=== PATIENT | female | born 1950 | race Caucasian/White ===

== ENCOUNTER → 2016-10-28 | Outpatient (CLI) | payer OTHER, MEDICARE, BC ==
[~2016-10-28] MED LIST: ASPIRIN PO; COREG PO; HUMALOG MIX 75/23 ML; LISINOPRIL PO; PLAVIX PO; ZESTORETIC 20/11 TAB PO; ZOCOR PO
[2016-10-28 12:29] LABS: HEMATOCRIT 34.8 % (35.0-45.0); HEMOGLOBIN 11.6 gm/dL (12.0-16.0); MEAN CELL VOLUME 88.2 FL (83-96); MEAN CORPUSCULAR HEMOGLOBIN 29.5 PG (28-34); MEAN CORPUSCULAR HGB CONC 33.4 g/dL (30-36); RED BLOOD COUNT 3.94 X10e (3.90-5.30); RED CELL DISTRIBUTION WIDTH 13.8 % (11.0-15.5); WHITE BLOOD COUNT 6.8 X10e3 (4.0-10.5)
[2016-10-28 13:09] LABS: CREATININE,RANDOM URINE 78 mg/dL; TOTAL PROTEIN,RANDOM URINE 41 mg/dl (<10)
[2016-10-28 13:10] LABS: BUN/CREATININE RATIO 21.92; CALCIUM SERUM 9.7 mg/dL (8.4-10.2); CREATININE SERUM 2.6 mg/dL (0.6-1.4); GLOM FILT RATE Estimated 18.3 mL/min (>60); PHOSPHOROUS 5.1 mg/dL (2.5-4.6); POTASSIUM 4.8 mmol/L (3.5-5.1)
[2016-10-30 20:54] LABS: CALCIUM (PTHINTACT) 9.7 mg/dL (8.6-10.4)
== END | disposition home or self-care (01) ==
LOC: CLAB 11:31
PROVIDERS: Internal Medicine Nephrology
DX: N17.9 Acute kidney failure, unspecified (principal); I12.9 Hypertensive chronic kidney disease with stage 1 through stage 4 chronic kidney disease, or unspecified chronic kidney disease; N18.3 Chronic kidney disease, stage 3 (moderate)
CPT/HCPCS: 36415; 80048; 82310; 82570; 83970; 84100; 84156; 85027

== ENCOUNTER → 2016-11-08 | Outpatient (CLI) | payer MEDICARE, BC ==
[2016-11-08 13:43] LABS: BILIRUBIN,TOTAL 0.6 mg/dL (0.2-2.0); BUN/CREATININE RATIO 18.46; CALCIUM SERUM 9.1 mg/dL (8.4-10.2); CREATININE SERUM 2.6 mg/dL (0.6-1.4); GLOM FILT RATE Estimated 18.3 mL/min (>60); POTASSIUM 4.6 mmol/L (3.5-5.1); PROTEIN TOTAL SERUM 6.7 g/dL (6.0-8.3)
[2016-11-09 17:18] LABS: MICROALB UR (PNL) 29.5 mg/dL (***)
== END | disposition home or self-care (01) ==
LOC: CLAB 12:03
PROVIDERS: Internal Medicine Endocrinology, Diabetes & Metabolism
DX: E10.21 Type 1 diabetes mellitus with diabetic nephropathy (principal); E10.649 Type 1 diabetes mellitus with hypoglycemia without coma; Z96.41 Presence of insulin pump (external) (internal)
CPT/HCPCS: 36415; 80053; 82043; 82570; 83036

== ENCOUNTER → 2017-02-21 | Outpatient (CLI) | payer MEDICARE, BC ==
[2017-02-21 15:23] LABS: CHOLESTEROL 236 mg/dL (0-200); HDL CHOLESTEROL 68 mg/dL (35-95); LDL/HDL RATIO 2 RATIO (0-4); TRIGLYCERIDES 59 mg/dL (10-160)
[2017-02-21 15:25] LABS: LDL CHOLESTEROL 156 mg/dL (-130)
== END | disposition home or self-care (01) ==
LOC: CLAB 13:45
PROVIDERS: Internal Medicine Endocrinology, Diabetes & Metabolism
DX: E10.65 Type 1 diabetes mellitus with hyperglycemia (principal); E10.21 Type 1 diabetes mellitus with diabetic nephropathy
CPT/HCPCS: 36415; 80061; 83036

== ENCOUNTER → 2017-03-06 | Outpatient (CLI) | payer MEDICARE, BC ==
[2017-03-06 13:23] LABS: HEMATOCRIT 33.1 % (35.0-45.0); HEMOGLOBIN 11.3 gm/dL (12.0-16.0); MEAN CELL VOLUME 87.8 FL (83-96); MEAN CORPUSCULAR HEMOGLOBIN 29.9 PG (28-34); MEAN CORPUSCULAR HGB CONC 34.1 g/dL (30-36); MEAN PLATELET VOLUME 11.8 FL (6.5-11.5); RED BLOOD COUNT 3.77 X10e (3.90-5.30); RED CELL DISTRIBUTION WIDTH 13.8 % (11.0-15.5); WHITE BLOOD COUNT 6.9 X10e3 (4.0-10.5)
[2017-03-06 13:51] LABS: URINE APPEARANCE CLEAR; URINE BILIRUBIN NEG (NEG); URINE BLOOD NEG (NEG); URINE COLOR YELLOW; URINE GLUCOSE NEG (NEG); URINE KETONE NEG (NEG); URINE LEUKOCYTE ESTERASE 1+ (NEG); URINE NITRATE NEG (NEG); URINE PROTEIN 1+ (NEG); URINE SPECIFIC GRAVITY 1.013 (1.003-1.035); URINE UROBILINOGEN 0.2 MG/DL (NEG)
[2017-03-06 13:53] LABS: URBCS1 AUWI 0-2 /[HPF] (0-2); URINE BACTERIA AUWI NEG (NEGATIVE); URINE SQUAMOUS EPITHELIAL CELL NONE SEEN /[HPF]
[2017-03-06 13:55] LABS: URINE SOURCE CLEAN CATCH
[2017-03-06 13:58] LABS: CREATININE SERUM 2.6 mg/dL (0.6-1.4); GLOM FILT RATE Estimated 18.3 mL/min (>60); PHOSPHOROUS 4.7 mg/dL (2.5-4.6)
== END | disposition home or self-care (01) ==
LOC: CLAB 12:06
PROVIDERS: Internal Medicine Nephrology
DX: E10.22 Type 1 diabetes mellitus with diabetic chronic kidney disease (principal); N18.3 Chronic kidney disease, stage 3 (moderate)
CPT/HCPCS: 36415; 80048; 81003; 82570; 82728; 83036; 83540; 83550; 84100; 85027